=== PATIENT | female | born 1970 | race Caucasian/White ===

== ENCOUNTER 2021-07-02 10:00 | Outpatient (CLI) | payer MEDICAID ==
[~2021-07-02] VITALS: Ht 160 cm; Wt 78.9 kg
== END 2021-07-02 11:00 | disposition home or self-care (01) ==
LOC: SLB 10:00 → EDSTATUS 07-07 09:00
PROVIDERS: ATTEND Internal Medicine Gastroenterology
DX: Z01.818 Encounter for other preprocedural examination (principal); Z20.822 Contact with and (suspected) exposure to COVID-19
CPT/HCPCS: 36415; U0003

== ENCOUNTER 2021-08-26 06:52 | Day surgery (SDC) | payer MEDICAID ==
[~2021-08-26] VITALS: Ht 157.5 cm; Wt 75.7 kg
[2021-08-26] MEDS ORDERED: MIDAZOLAM HCL 5 MG/5 ML VIAL ONE ×2 (07:38→10:28)
[2021-08-26] MEDS ORDERED: MEPERIDINE 100 MG INJ. 100 MG/ML VIAL ONE (07:38)
[2021-08-26 13:05] VITALS: BP_SYST 94
== END 2021-08-26 12:15 | disposition home or self-care (01) ==
LOC: SDS 06:52 → SMU 06:55 → SDS 12:15
PROVIDERS: ATTEND Internal Medicine Gastroenterology
DX: Z12.11 Encounter for screening for malignant neoplasm of colon (principal); D12.5 Benign neoplasm of sigmoid colon; K64.8 Other hemorrhoids; Z20.822 Contact with and (suspected) exposure to COVID-19
CPT/HCPCS: 36415 ×2; 45380; 87426; 88305; 99152; 99153; U0003; G0378; J2250; J2175